=== PATIENT | female | born 1955 | race Caucasian/White ===

== ENCOUNTER → 2018-10-10 | Outpatient (CLI) | payer OTHER ==
--- NOTE | 2018-10-10 11:11 | PCVCIMAG ---
APPROVED REPORT Study performed: 10/10/2018 09:00:50 EXAM: Comprehensive 2D, Doppler, and color-flow Echocardiogram Patient Location: Echo lab Status: routine BSA: 1.96 HR: 62 bpmBP: 160/102 mmHg Rhythm: NSR Other Information Study Quality: Adequate Risk Factors: Cardiac Risk Factors: HTN, Hyperlipidemia, Smoking 2D Dimensions IVSd: 14.96 (7-11mm) LVDd: 45.82 mm PWd: 13.77 (7-11mm)Ascending Ao: 32.22 (22-36mm) LVDs: 33.83 (25-40mm) Left Atrium: 42.76 (27-40mm) Aortic Root: 33.43 mm LV Single Plane 4CH: 51.45 % LV Single Plane 2CH: 59.28 % Biplane EF: 56.7 % Volumes Left Atrial Volume (Systole) Single Plane 4CH: 83.20 mLSingle Plane 2CH: 62.66 mL LA ESV Index: 37.00 mL/m2 Aortic Valve AoV Peak Don.: 1.66 m/s AO Peak Gr.: 11.02 mmHgLVOT Max P.92 mmHg LVOT Max V: 1.11 m/s Mitral Valve E/A Ratio: 0.8 MV Decel. Time: 271.26 ms MV E Max Don.: 0.52 m/s MV A Don.: 0.66 m/s IVRT: 134.95 ms Pulmonary Valve PV Peak Don.: 0.99 m/sPV Peak Gr.: 3.95 mmHg Pulmonary Vein P Vein S: 0.40 m/sP Vein A: 0.34 m/s P Vein D: 0.49 m/sP Vein A Dur.: 138.4 msec P Vein S/D Ratio: 0.82 Tricuspid Valve TR Peak Don.: 2.70 m/s TR Peak Gr.: 29.27 mmHg TV Vmax: 0.41 m/s Left Ventricle The left ventricle is normal size. There is normal LV segmental wall motion. Mild concentric left ventricular hypertrophy. Left ventricular systolic function is normal. The left ventricular ejection fraction is within the normal range. LVEF is 55%. Grade I - abnormal relaxation pattern. Right Ventricle The right ventricle is normal size. The right ventricular systolic function is normal. Atria Left atrium is mildly dilated. The right atrium size is normal. Aortic Valve The aortic valve is normal in structure. No aortic regurgitation is present. There is no aortic valvular stenosis. Mitral Valve The mitral valve is normal in structure. Mitral leaflet flattening, no prolapse. Mild mitral regurgitation. No evidence of mitral valve stenosis. Tricuspid Valve The tricuspid valve is normal in structure. Mild tricuspid regurgitation with PAP of 36 mmHg. Pulmonic Valve The pulmonary valve is normal in structure. Trace pulmonic regurgitation. Great Vessels The aortic root is normal in size. IVC is normal in size and collapses >50% with inspiration. Pericardium There is no pericardial effusion. There is no pleural effusion. <Conclusion> The left ventricle is normal size. LVEF is 55%. Left atrium is mildly dilated. The aortic valve is normal in structure. The mitral valve is normal in structure. Mitral leaflet flattening, no prolapse. Mild mitral regurgitation. The tricuspid valve is normal in structure. Mild tricuspid regurgitation with PAP of 36 mmHg. The pulmonary valve is normal in structure. Trace pulmonic regurgitation. There is no pericardial effusion. There is no pleural effusion.
--- NOTE | 2018-10-10 14:34 | PCVCIMAG ---
EXAM: BILATERAL RENAL ULTRASOUND AND BILATERAL RENAL DUPLEX INDICATION: Hypertension FINDINGS: Right kidney: Length measures 10.7 cm. No hydronephrosis or extensive renal scarring. Right renal duplex: Adequate technical quality. No sonographic evidence of renal artery stenosis. The aortic to renal artery ratio is 2.2. The renal vein is patent. Left kidney: Length measures 10.9 cm. No hydronephrosis or extensive renal scarring. Left renal duplex: Adequate technical quality. No sonographic evidence of renal artery stenosis. The aortic to renal artery ratio is 1.9. The renal vein is patent. Bladder: No obvious abnormalities. IMPRESSION: No significant renal artery stenosis. No hydronephrosis bilaterally. LOC:[place] [id number]
== END | disposition home or self-care (01) ==
LOC: PCVCIMAG 09:03
PROVIDERS: ATTEND Internal Medicine
DX: I08.1 Rheumatic disorders of both mitral and tricuspid valves (principal); I11.9 Hypertensive heart disease without heart failure; E78.5 Hyperlipidemia, unspecified
CPT/HCPCS: 76770; 93306; 93975

== ENCOUNTER → 2019-04-17 | Outpatient (CLI) | payer OTHER | END | disposition home or self-care (01) | LOC: PCVCCLINIC 14:30 | PROVIDERS: ATTEND Internal Medicine | DX: I10 Essential (primary) hypertension (principal); E78.5 Hyperlipidemia, unspecified; F17.210 Nicotine dependence, cigarettes, uncomplicated; Z78.0 Asymptomatic menopausal state | CPT/HCPCS: 36415; 80061; 93005; G0463 ==